=== PATIENT | female | born 1990 | race Caucasian/White ===

== ENCOUNTER 2023-04-23 09:04 | Observation (INO) | payer MEDICAID, SELFPAY ==
[2023-04-23] VITALS (9 sets, daily range): BP systolic 106–134; BP diastolic 48–80; PULSE 74–100; RESP 18; TEMP 36.1; O2SAT 95–100; BMI 41.3
--- NOTE | ~2023-04-23 | US_ITS ---
EXAMINATION: US OB follow up DATE: 04/23/2023 10:37 INDICATION: Lower abdominal pain during of indeterminate gestational age TECHNIQUE: Real-time ultrasound of the pelvis was performed. The interpreting radiologist was not pre sent for the study. COMPARISON: None. FINDINGS: There is a single living fetus in vertex presentation. The placenta is posterior and not low-lying. There is no funneling at the internal cervical os. The cervix measures >2.4 cm but with the region of the external cervical os obscured limiting definitive measurement. heart rate is 131 beats per minute (bpm). The amniotic fluid volume is subjectively normal. The following biometric data were obtained: BPD: 6.8 cm -> 27 weeks 3 days Head circumference: 24.7 cm -> 26 weeks 5 days Abdominal circumference: 22.4 cm -> 26 weeks 6 days Femur length: 5.0 cm -> 26 weeks 6 days These measurements are concordant. Head circumference to abdominal circumference ratio: 1.10 (normal range 1.05-1.22). Estimated weight: 993 g (+/-) 149 g or 2 lbs. 3 oz. (+/-) 5 oz. IMPRESSION: 1. Single living fetus in vertex presentation with heart rate of 131 bpm. 2. Gestational age by ultrasound of 27 weeks 0 day(s) +/- 1 week(s) 6 day(s) with ultrasound estimate d date of delivery (SUAD) of 07/23/2023. Please correlate with clinical information or earlier ultrasou nds for most accurate SUAD. Reviewed, dictated and finalized at location A. STANT PROGRAM DIRECTOR IMPRESSION: 1. Single living fetus in vertex presentation with heart rate of 131 bpm. 2. Gestational age by ultrasound of 27 weeks 0 day(s) +/- 1 week(s) 6 day(s) wi th ultrasound estimated date of delivery (SUAD) of 07/23/2023. Please correlate w ith clinical information or earlier ultrasounds for most accurate SUAD.
[2023-04-23 09:55] LABS: Basophils Percent Auto 0.4 % (0.2-1.2); Eosinophils Absolute Auto 0.1 K/mm3 (0-0.3); Eosinophils Percent Auto 0.7 % (0-4.4); Hematocrit 40.3 % (37.0-47.0); Hemoglobin 13.5 g/dL (12.0-15.0); Immature Granulocyte Absolute 0.04 K/mm3 (0.00-0.031); Immature Granulocyte Percent A 0.4 % (0-0.5); Lymphocytes Absolute Auto 2.01 K/mm3 (0.9-3.2); Lymphocytes Percent Auto 21.1 % (18.3-44.2); Mean Corpuscular HGB Conc 33.5 g/dl (32-36); Mean Corpuscular Hemoglobin 29.6 pg (26-34); Mean Corpuscular Volume 88.4 fl (80-100); Mean Platelet Volume 11.2 fl (7.4-10.4); Monocytes Absolute Auto 0.4 K/mm3 (0.1-0.6); Monocytes Percent Auto 4.5 % (2.6-8.5); Neutrophils Absolute Auto 6.9 K/mm3 (1.3-6.7); Neutrophils Percent Auto 72.9 % (45.5-73.1); Platelet Count Result 217 k/mm3 (150-375); Red Blood Count 4.56 M/mm3 (4.2-5.4); Red Cell Distribution Width 13.2 % (11.5-14.5); White Blood Count 9.5 K/mm3 (4.5-10.0)
--- NOTE | 2023-04-23 10:04 | ED.ABDPAIN ---
HPI - Abdominal Pain General Chief Complaint: Abdominal Pain Stated Complaint: Request Initial Care Time Seen by Provider: 04/23/23 09:30 Source: patient Mode of arrival: ambulatory Limitations: no limitations History of Present Illness HPI narrative: patient is a 33-year-old female who presents the ED with report of lower abdominal pain. Patient is primarily Nepali-speaking. [email or web address] food sampler was utilized for assistance with translation. Reports she had a positive home test last . This is her 1st . She is unsure of her last normal cycle as she states they are very irregular. She developed lower abdominal pain on Wednesday, which has been fairly constant since then. She has not tried anything for the pain. Reports intermittent vomiting. Denies current nausea. Denies fevers, dysuria, hematuria, vaginal bleeding. Patient does not have an OBGYN. Related Data Home Medications Medication Instructions Recorded Confirmed No Home Medications 04/23/23 04/23/23 Allergies Allergy/AdvReac Type Severity Reaction Status Date / Time No Known Allergies Allergy Verified 04/23/23 09:35 Review of Systems Review of Systems: CONSTITUTIONAL: Denies fever, chills, or sweats. CARDIOVASCULAR: Denies chest pain. RESPIRATORY: Denies dyspnea. GASTROINTESTINAL: See HPI. GENITOURINARY: Denies vaginal bleeding, dysuria or hematuria. MUSCULOSKELETAL: Denies back pain, extremity pain, myalgia. All systems reviewed & are unremarkable except as noted in HPI and below Exam Narrative: GENERAL: Well appearing, morbidly obese with BMI 41.4, non-toxic, in no acute distress. HEAD: Normocephalic, atraumatic. RESPIRATORY: Airway patent, respirations nonlabored. Clear to auscultation bilaterally, no rales, rhonchi, wheezing. CARDIOVASCULAR: Regular rate and rhythm without murmurs, rubs, or gallops. ABDOMINAL: Soft, mild tenderness throughout lower abdomen, no significant focal tenderness in either lower quadrants, nondistended. Normoactive BS. MUSCULOSKELETAL: Moves all extremities. No gross deformities. SKIN: Warm, dry, normal color. NEURO: A&O X3. Speech clear. Cranial nerves II-XII grossly intact. Steady gait. No ataxic movements. PSYCHIATRIC: Appropriate mood and affect. Normal interaction. Course Vital Signs Vital signs: Vital Signs Temperature 96.9 F L 04/23/23 09:06 Pulse Rate 100 04/23/23 09:06 Respiratory Rate 18 04/23/23 09:06 Blood Pressure 134/80 04/23/23 09:06 Pulse Oximetry 95 04/23/23 09:06 Oxygen Delivery Room Air 04/23/23 09:06 Temperature 96.9 F L 04/23/23 09:06 Pulse Rate 77 04/23/23 12:44 Respiratory Rate 18 04/23/23 09:06 Blood Pressure 110/48 L 04/23/23 12:44 Pulse Oximetry 97 04/23/23 12:06 Oxygen Delivery Room Air 04/23/23 09:06 MDM - Abdominal Pain MDM Narrative Medical decision making narrative: Patient presented to ED with positive test, lower abdominal pain, , denying vaginal bleeding. Vital signs stable. Laboratory studies fairly unremarkable. Beta quant only 1098. Blood type O+. OB ultrasound obtained and showing single live IUP w/ gestational age of 27 weeks. No significant abnormalities on ultrasound. Discussed case with Ob charge nurse, patient to come over to OB for further monitoring given presence of abdominal pain. I did discuss case with Dr. Barajas, OBGYN talent acquisition associate, advised patient has not had any care. Does not currently have an OBGYN. She will see patient. patient updated on plan and imaging results. She is in agreement with plan. She remains stable at time of transfer to OB. Medical Records Attestation: I reviewed the patient's medical records. Lab Data Attestation: I reviewed the patient's lab results. 04/23/23 09:42 04/23/23 09:42 Labs: Lab Results 04/23/23 Range/Units 09:42 WBC 9.5 (4.5-10.0) K/mm3 RBC 4.56 (4.2-5.4)
[2023-04-23 10:08] LABS: Appearance Urine Clear (Clear); Bacteria Urine None Seen /hpf; Bilirubin Urine Negative (Negative); Blood Urine Negative (Negative); Color Urine Yellow (Yellow); Glucose Urine UA Negative (Negative); Ketones Urine Negative (Negative); Leukocyte Esterase Ur Trace LEU/UL (Negative); Nitrate Urine Negative (Negative); Non Pathogenic Casts 0-2; Protein Urine Negative (Negative); RBC Urine 0-2 /hpf (0-2); Specific Grav Ur 1.016 (1.001-1.035); Squamous Epithelial Cell Urine None seen /hpf (Few); Urobilinogen Urine 0.2 mg/dL (<2.0); WBC Urine 0-5 /hpf
[2023-04-23 10:09] LABS: Alanine Aminotransferase 42 U/L (6-35); Albumin Level 3.9 g/dL (3.5-5.1); Alkaline Phosphatase 99 U/L (38-126); Anion Gap 12 mmol/L (8-16); Aspartate Amino Transferase 29 U/L (14-36); Bilirubin,Total 0.5 mg/dL (0.2-1.3); Blood Urea Nitrogen 6 mg/dL (7-17); Calcium 9.3 mg/dL (8.4-10.2); Carbon Dioxide 17 mmol/L (22-30); Chloride 108 mmol/L (98-107); Estimated CRCL calculation 158 ml/min; Estimated Glomerular Filt Rate > 60; Glucose 118 mg/dL (65-110); Potassium 3.6 mmol/L (3.4-5.0); Sodium 137 mmol/L (137-145)
[2023-04-23 10:10] LABS: Add Urine Microscopic? YES
--- NOTE | 2023-04-23 12:02 | LDADM ---
This patient, Narcisa Allison, was admitted to OB Post 115 on 04/23/23 at 11:20. Plans for labor, pain management and were discussed with patient. Patient/family oriented to hospital policies and general routines including ID bracelet, bed and alarms, visiting hours, pain management, procedures, bathroom and other care routines, personal items, smoking policy, room service/diet and guest tray routines, infant security routines, and visiting hours. Patient/Family are encouraged to report perceived risks to care and to ask questions if they do not understand what they are told or what they should do. See OBIX for further documentation.
--- NOTE | 2023-04-23 12:09 | PC.NURSE ---
pt admitted to observation and is primary Yemeni speaking. director community center ID #[id number] Pt was seen in ED for new and abdomen pain. ED discharged pt and sent OB for further evaluation. reactive NST obtained. Pt rates pain 7/10 no guarding, grimacing, or tenderness noted. called dr Barajas at [address] for further orders[address] Per Dr Barajas evaluation was done in ED orders to obtain NST and discharge pt with instructions to see OBGYN MOHINDER
--- NOTE | 2023-04-23 12:41 | PC.NURSE ---
Used plasma center technician ID number [id number] to go over discharge orders with pt. Pt to follow up with Dr Barajas's Office as soon as possible . Pt educated to start taking daily and Tylenol as needed for pain until dr salcedo.
--- NOTE | 2023-04-28 01:53 | PM.OBTRLD ---
OB - Triage/Final Diagnosis Visit Information Reason for evaluation: other ( abdominal pain) Comments/Additional reasons for admission: I have assessed the risk for this patient, Narcisa Allison, and determined that she would benefit from observation care. Evaluation Laboratory results: Laboratory Tests 04/23/23 09:42 WBC 9.5 RBC 4.56 Hgb 13.5 Hct 40.3 MCV 88.4 MCH 29.6 MCHC 33.5 RDW 13.2 Plt Count 217 MPV 11.2 H Immature Gran % (Auto) 0.4 Neut % (Auto) 72.9 Lymph % (Auto) 21.1 [place] % (Auto) 4.5 Eos % (Auto) 0.7 Baso % (Auto) 0.4 Lymph # (Auto) 2.01 [place] # (Auto) 0.4 Eos # (Auto) 0.1 Baso # (Auto) 0.0 Abs Immat Gran (auto) 0.04 H Absolute Neuts (auto) 6.9 H Absolute Nucleated RBC 0.0 Nucleated RBC % 0.0 Sodium 137 Potassium 3.6 Chloride 108 H Carbon Dioxide 17 L Anion Gap 12 BUN 6 L Creatinine 0.50 L Estim Creat Clear Calc 158 Estimated GFR > 60 Glucose 118 H Calcium 9.3 Total Bilirubin 0.5 AST 29 ALT 42 H Alkaline Phosphatase 99 Total Protein 7.0 Albumin 3.9 Beta HCG, Quant 1098.40 Urine Color Yellow Urine Appearance Clear Urine pH 5.0 Ur Specific [place] 1.016 Urine Protein Negative Urine Glucose (UA) Negative Urine Ketones Negative Ur Blood (Man) Negative Urine Nitrate Negative Urine Bilirubin Negative Urine Urobilinogen 0.2 Leukocyte Esterase Rfl Trace H Urine RBC 0-2 Urine WBC 0-5 Ur Squamous Epith Cells None seen Urine Bacteria None seen Urine Casts 0-2 Blood Type O Positive Antibody Screen Negative Screen Not Reportable Baby's Blood Type Not Reportable Baby's YAAKOV Not Reportable Doses of RhIg Required 0
== END 2023-04-23 12:40 | disposition home or self-care (01) ==
LOC: ANHED 11:16 → ANHOBPP 11:33
PROVIDERS: Admitting Provider Obstetrics & Gynecology Gynecology; Emergency Provider Physician Assistant; Visit Provider Obstetrics & Gynecology Gynecology
DX: O26.892 Other specified pregnancy related conditions, second trimester (principal); R10.30 Lower abdominal pain, unspecified; O21.9 Vomiting of pregnancy, unspecified; Z3A.27 27 weeks gestation of pregnancy
CPT/HCPCS: 36415; 59025; 76816; 80053; 81001; 81025; 84702; 85025; 85461; 86850; 86900; 86901; G0378; G0379

== ENCOUNTER 2023-05-31 12:40 | Outpatient (CLI) | payer MEDICAID, SELFPAY ==
--- NOTE | ~2023-05-31 | US_ITS ---
EXAMINATION: US OB follow up DATE: 05/31/2023 16:18 INDICATION: Size greater than dates. TECHNIQUE: Real-time transabdominal and transvaginal ultrasound of the pelvis was performed. COMPARISON: Ultrasound 04/23/2023 FINDINGS: There is a single living fetus in vertex presentation. The placenta is posterior. heart rate i s 146 beats per minute (bpm). The amniotic fluid volume is subjectively normal. The following biometric data were obtained: Biparietal diameter (BPD): 8.0 cm; head circumference (HC): 29.4 cm; abdominal circumference (AC): 28 .8 cm; femur length (FL): 6.3 cm. These measurements are concordant. Estimated weight is 2005 g +/- 301 g, which correlates with the 45th percentile when 07/23/23 is used as estimated date of delivery. As single measurements, these parameters are each equal to the following estimated gestational ages: BPD: 32 weeks 1 days. HC: 32 weeks 3 days. AC: 32 weeks 6 days. FL: 32 weeks 3 days. estimated gestational age based solely on measurements from this exam is 32 weeks 3 days +/- 2 weeks 2 days. The cervical length is 4.6 cm on transvaginal imaging, which is normal. IMPRESSION: 1. Single living fetus in vertex presentation. 2. Estimated weight is 2005 g +/- 301 g, which correlates with the 45th percentile when 4 is used as estimated date of delivery. Reviewed, dictated and finalized at location A. NG MACHINE OPERATOR IMPRESSION: 1. Single living fetus in vertex presentation. 2. Estimated weight is 2006 g +/- 301 g, which correlates with the 45th percentile when 07/23/23 is used as estimated date of delivery.
[2023-05-31 14:39] LABS: Basophils Percent Auto 0.3 % (0.2-1.2); Eosinophils Absolute Auto 0.1 K/mm3 (0-0.3); Eosinophils Percent Auto 0.6 % (0-4.4); Hematocrit 40.9 % (37.0-47.0); Hemoglobin 13.4 g/dL (12.0-15.0); Immature Granulocyte Absolute 0.06 K/mm3 (0.00-0.031); Immature Granulocyte Percent A 0.6 % (0-0.5); Lymphocytes Absolute Auto 2.46 K/mm3 (0.9-3.2); Mean Corpuscular HGB Conc 32.8 g/dl (32-36); Mean Corpuscular Volume 88.5 fl (80-100); Mean Platelet Volume 11.1 fl (7.4-10.4); Monocytes Absolute Auto 0.5 K/mm3 (0.1-0.6); Monocytes Percent Auto 5.4 % (2.6-8.5); Neutrophils Absolute Auto 6.7 K/mm3 (1.3-6.7); Neutrophils Percent Auto 68.1 % (45.5-73.1); Platelet Count Result 220 k/mm3 (150-375); Red Blood Count 4.62 M/mm3 (4.2-5.4); Red Cell Distribution Width 13.5 % (11.5-14.5); White Blood Count 9.8 K/mm3 (4.5-10.0)
[2023-05-31 14:48] LABS: Glucose 1 Hour PP 50gm Dose 168 mg/dL
[2023-05-31 15:55] LABS: Hemoglobin A1C 5.3 % (<5.7)
[2023-05-31 16:36] LABS: Vitamin D 25 Hydroxy 41.1 ng/mL
[2023-05-31 16:45] LABS: Free T4 Free Thyroxine 0.77 ng/mL (0.78-2.19)
[2023-05-31 17:01] LABS: HIV 1/2 Ab P24 Ag Result Negative (Negative)
[2023-06-01 04:46] LABS: Hepatitis C Virus Antibody Negative (Negative)
[2023-06-01 04:56] LABS: Hepatitis B Surface Antigen Negative (Negative); Rubella IgG Antibody 13.1 IU/ML
[2023-06-01 15:56] LABS: Rapid Plasma Reagin Non-Reactive (NonReactive)
== END 2023-05-31 12:41 | disposition home or self-care (01) ==
PROVIDERS: Visit Provider Advanced Practice Midwife
DX: Z36.9 Encounter for antenatal screening, unspecified (principal); O36.63X0 Maternal care for excessive fetal growth, third trimester, not applicable or unspecified; Z3A.00 Weeks of gestation of pregnancy not specified
CPT/HCPCS: 36415; 76816; 82306; 82728; 82947; 83036; 84439; 84443; 85025; 86592; 86703; 86762; 86803; 86850; 86900; 86901; 87340; G0432

== ENCOUNTER 2023-06-11 12:05 | Outpatient (CLI) | payer MEDICAID, SELFPAY ==
--- NOTE | ~2023-06-11 | US_ITS ---
EXAMINATION: US OB /maternal detail DATE: 06/11/2023 13:05 INDICATION: Size greater than dates during third trimester , anatomy assessment TECHNIQUE: Real-time ultrasound of the pelvis was performed. COMPARISON: 05/31/2023 FINDINGS: There is a single living fetus in vertex presentation. The placenta is posterior/fundal. heart rate is 138 beats per minute (bpm). cardiac activity and movement are noted. The amnioti c fluid index is 13.3 which is normal (normal range: 8.1 cm to 24.8 cm). There is limited evaluation of the intracranial structures which appear grossly normal. The following anatomy was identified as normal: 4 chamber heart 3 vessel cord cord insertion kidneys urinary bladder stomach spine diaphragm The following biometric data were obtained: Biparietal diameter (BPD): 8.3 cm; head circumference (HC): 31.3 cm; abdominal circumference (AC): 32 .3 cm; femur length (FL): 6.4 cm. The femoral length to abdominal circumference ratio is greater than two standard deviations below the mean. Estimated weight is 2565 g +/- 384 g, which correlates with the 73rd percentile when 07/23/2023 is used as estimated date of delivery. As single measurements, these parameters are each equal to the following estimated gestational ages w ith ranges of +/- 2 standard deviations: BPD: 33 weeks 2 days +/- 3 weeks 1 days. HC: 35 weeks 1 days +/- 3 weeks 0 days. AC: 36 weeks 1 days +/- 3 weeks 0 days. FL: 33 weeks 1 days +/- 3 weeks 0 days. estimated gestational age based solely on measurements from this exam is 34 weeks 3 days +/- 2 weeks 3 days. IMPRESSION: 1. Single living fetus in vertex presentation. 2. Estimated weight is 2565 g +/- 384 g, which correlates with the 73rd percentile when 07/23/19 24 is used as estimated date of delivery. 3. Normal amniotic fluid index. 4. Femoral length to abdominal circumference ratio greater than two standard deviations below the roopa n. Reviewed, dictated and finalized at location B. ING FOREMAN IMPRESSION: 1. Single living fetus in vertex presentation. 2. Estimated weight is 2565 g +/- 384 g, which correlates with the 73rd p ercentile when 07/23/2023 is used as estimated date of delivery. 3. Normal amniotic fluid index. 4. Femoral length to abdominal circumference ratio greater than two standard de viations below the mean.
[2023-06-11 13:45] VITALS: BP 116/57
== END 2023-06-11 12:06 | disposition home or self-care (01) ==
LOC: ANHIMG 12:06
PROVIDERS: Visit Provider Advanced Practice Midwife
DX: O36.63X0 Maternal care for excessive fetal growth, third trimester, not applicable or unspecified (principal); Z3A.34 34 weeks gestation of pregnancy
CPT/HCPCS: 59025; 76805

== ENCOUNTER 2023-06-26 12:53 | Outpatient (RCR) | payer MEDICAID, SELFPAY ==
[2023-06-08 17:47] VITALS: BP 109/59; PULSE 75
[2023-06-15 10:57] VITALS: BP 108/68; PULSE 94
[2023-06-23 17:00] VITALS: BP 104/70; PULSE 78
--- NOTE | 2023-06-23 17:04 | PC.NURSE ---
6 called navid to clarify orders. confirmed NST 2x weekly.
== END 2023-09-02 23:59 | disposition home or self-care (01) ==
LOC: ANHOBOP 12:53
PROVIDERS: Visit Provider Obstetrics & Gynecology Gynecology
DX: O24.419 Gestational diabetes mellitus in pregnancy, unspecified control (principal); Z3A.33 33 weeks gestation of pregnancy; Z3A.34 34 weeks gestation of pregnancy; Z3A.35 35 weeks gestation of pregnancy; Z3A.36 36 weeks gestation of pregnancy
CPT/HCPCS: 59025

== ENCOUNTER 2023-07-09 16:09 | Observation (INO) | payer MEDICAID, SELFPAY ==
[2023-07-09 16:59] VITALS: BP 86/53; PULSE 77
[2023-07-09 17:00] VITALS: BP 92/24; PULSE 135
[2023-07-09 17:01] VITALS: BP 98/68; PULSE 89
[2023-07-09 17:02] VITALS: BP 97/61; PULSE 93
--- NOTE | 2023-07-09 17:07 | OBADM ---
This patient, Narcisa Allison, admitted to the OB room Labor/Delivery/Recovery 105 for observation. Patient/family oriented to hospital policies and general routines including ID bracelet, bed and alarms, visiting hours, pain management, procedures, bathroom and other care routines, personal items, smoking policy, room service/diet, and visiting hours. Patient/Family are encouraged to report perceived risks to care and to ask questions if they do not understand what they are told or what they should do.
[2023-07-09 17:30] VITALS: BP 107/66; PULSE 76
[2023-07-09 17:35] LABS: Appearance Urine Clear (Clear); Bilirubin Urine Negative (Negative); Blood Urine Negative (Negative); Color Urine Yellow (Yellow); Glucose Urine UA Negative (Negative); Ketones Urine Negative (Negative); Leukocyte Esterase Ur Negative LEU/UL (Negative); Nitrate Urine Negative (Negative); Protein Urine Negative (Negative); Specific Grav Ur 1.012 (1.001-1.035); Urobilinogen Urine 0.2 mg/dL (<2.0); pH Urine 5.5 (5.0-9.0)
[2023-07-09 18:00] VITALS: BP 109/70; PULSE 90
[2023-07-09 18:38] LABS: Add Urine Microscopic? NO
--- NOTE | 2023-07-14 06:12 | PM.OBTRLD ---
OB - Triage/Final Diagnosis Visit Information Reason for evaluation: threatened labor Comments/Additional reasons for admission: I have assessed the risk for this patient, Narcisa Allison, and determined that she would benefit from observation care. Evaluation Laboratory results: Laboratory Tests 07/09/23 16:58 Urine Color Yellow Urine Appearance Clear Urine pH 5.5 Ur Specific [place] 1.012 Urine Protein Negative Urine Glucose (UA) Negative Urine Ketones Negative Ur Blood (Man) Negative Urine Nitrate Negative Urine Bilirubin Negative Urine Urobilinogen 0.2 Leukocyte Esterase Rfl Negative
== END 2023-07-09 18:52 | disposition home or self-care (01) ==
PROVIDERS: Admitting Provider Obstetrics & Gynecology Gynecology; Visit Provider Obstetrics & Gynecology Gynecology
DX: O47.1 False labor at or after 37 completed weeks of gestation (principal); Z3A.38 38 weeks gestation of pregnancy
CPT/HCPCS: 81003; G0378; G0379

== ENCOUNTER 2023-07-14 15:54 | Inpatient (IN) | payer MEDICAID, SELFPAY ==
[2023-07-14] VITALS (93 sets, daily range): BP systolic 81–139; BP diastolic 49–97; PULSE 69–108; TEMP 36.2–36.4; O2SAT 95–100; BMI 44.5
--- NOTE | 2023-07-14 16:22 | LDADM ---
This patient, Narcisa Allison, was admitted to Labor/Delivery/Recovery 107 on 07/14/23 at 15:54. Plans for labor, pain management and were discussed with patient. Patient/family oriented to hospital policies and general routines including ID bracelet, bed and alarms, visiting hours, pain management, procedures, bathroom and other care routines, personal items, smoking policy, room service/diet and guest tray routines, infant security routines, and visiting hours. Patient/Family are encouraged to report perceived risks to care and to ask questions if they do not understand what they are told or what they should do. See OBIX for further documentation.
[2023-07-14] MEDS: LACTATED RINGERS 1,000 ML 125 ML IV CONT (16:58)
[2023-07-14] MEDS: OXYTOCIN 30 UNITS/NS 500 ML 30 UNITS/500 ML BAG IV CONT (16:59)
[2023-07-14 17:22] LABS: Basophils Percent Auto 0.4 % (0.2-1.2); Eosinophils Absolute Auto 0.1 K/mm3 (0-0.3); Eosinophils Percent Auto 0.5 % (0-4.4); Hematocrit 43.6 % (37.0-47.0); Hemoglobin 14.8 g/dL (12.0-15.0); Immature Granulocyte Absolute 0.04 K/mm3 (0.00-0.031); Immature Granulocyte Percent A 0.4 % (0-0.5); Lymphocytes Absolute Auto 3.43 K/mm3 (0.9-3.2); Mean Corpuscular HGB Conc 33.9 g/dl (32-36); Mean Corpuscular Hemoglobin 28.7 pg (26-34); Mean Corpuscular Volume 84.5 fl (80-100); Mean Platelet Volume 11.7 fl (7.4-10.4); Monocytes Absolute Auto 0.6 K/mm3 (0.1-0.6); Monocytes Percent Auto 4.8 % (2.6-8.5); Neutrophils Absolute Auto 7.3 K/mm3 (1.3-6.7); Neutrophils Percent Auto 63.9 % (45.5-73.1); Platelet Count Result 242 k/mm3 (150-375); Red Blood Count 5.16 M/mm3 (4.2-5.4); Red Cell Distribution Width 13.7 % (11.5-14.5); White Blood Count 11.4 K/mm3 (4.5-10.0)
[2023-07-14 17:34] LABS: Alanine Aminotransferase 32 U/L (6-35); Alkaline Phosphatase 224 U/L (38-126); Anion Gap 10 mmol/L (8-16); Aspartate Amino Transferase 27 U/L (14-36); Bilirubin,Total 0.6 mg/dL (0.2-1.3); Blood Urea Nitrogen 13 mg/dL (7-17); Calcium 9.7 mg/dL (8.4-10.2); Carbon Dioxide 17 mmol/L (22-30); Chloride 107 mmol/L (98-107); Estimated CRCL calculation 130 ml/min; Estimated Glomerular Filt Rate > 60; Glucose 81 mg/dL (65-110); Potassium 3.8 mmol/L (3.4-5.0); Sodium 134 mmol/L (137-145)
--- NOTE | 2023-07-14 18:14 | PC.NURSE ---
Used [email or web address] section beamer number [id number] to ask induction questions.
--- NOTE | 2023-07-14 18:14 | WPDOBADMIT ---
Obstetrics - Admit Note Admission Note: record reviewed. No pertinent additions to the history and/or any subsequent changes in the physical findings that are not consistent with the expected course of the were found. Additions to the history and/or subsequent changes in the physical findings follow. Pt with elevated BP at term and RUQ pain.
--- NOTE | 2023-07-14 18:16 | PM.OBPNLAB ---
Pain Control Date/time seen: 07/14/23 18:10 Pain control: tolerating well Comments: Family present and supportive. Pelvic Exam Dilation (cm): 3 Effacement (%): 50 station: -3 Amniotic membrane status: Intact Comments: head well applied to cervix. Contractions Monitor mode: External Contraction frequency: 3 (3-5) Contraction duration: 80 (60-120) Contraction pattern: Regular Contraction phase: Contraction Contraction intensity: Moderate Status status: Category l Assessment and Plan Pitocin rate (mU/min): 4 Assessment: induction ongoing Plan: continuous present management Comments: CNM to bedside. Pt still with RUQ discomfort. No evidence of preeclampsia. BPs WNL. Discussed plan of care an option for amniotomy. Discussed risks, benefits, and expectations of breaking water. Patient is agreeable. Amniotomy performed and there was a moderate return of clear amniotic fluid. Patient tolerated procedure well. Pitocin decreased to 2 ml/hr. Discussed plan of care with pt. Anticipate vaginal . Dr. Barajas updated.
--- NOTE | 2023-07-14 18:21 | PC.NURSE ---
Orders to hold night dose of NPH insulin tonight per MARGE Salazar.
--- NOTE | 2023-07-14 19:16 | WPDANESEPP ---
Anes - Eval Pre Procedure Procedure: Labor epidural Date/Time: 07/14/23 19:16 Surgeon: moises Preop Diagnosis: pain during labor Pre Op Diagnosis: IOL Patient Data Age: 33 Gender: F Height: 1.55 m Weight: 107 kg Last Vital Signs Temp 36.2 C L 07/14/23 18:05 Pulse 89 07/14/23 19:15 BP 124/85 07/14/23 19:15 O2 Del Method Room Air 07/14/23 16:13 Allergies Allergy/AdvReac Type Severity Reaction Status Date / Time No Known Allergies Allergy Verified 07/14/23 16:33 Home Medications Medication Instructions Recorded Confirmed Type prenat.vits,eddie,anb-qicd-upnot 1 tablet PO DAILY 06/26/23 07/14/23 History Laboratory Tests 07/14/23 16:22 WBC 11.4 H K/mm3 (4.5-10.0) RBC 5.16 M/mm3 (4.2-5.4) Hgb 14.8 g/dL (12.0-15.0) Hct 43.6 % (37.0-47.0) MCV 84.5 fl (80-100) MCH 28.7 pg (26-34) MCHC 33.9 g/dl (32-36) RDW 13.7 % (11.5-14.5) Plt Count 242 k/mm3 (150-375) MPV 11.7 H fl (7.4-10.4) Immature Gran % (Auto) 0.4 % (0-0.5) Neut % (Auto) 63.9 % (45.5-73.1) Lymph % (Auto) 30.0 % (18.3-44.2) [place] % (Auto) 4.8 % (2.6-8.5) Eos % (Auto) 0.5 % (0-4.4) Baso % (Auto) 0.4 % (0.2-1.2) Lymph # (Auto) 3.43 H K/mm3 (0.9-3.2) [place] # (Auto) 0.6 K/mm3 (0.1-0.6) Eos # (Auto) 0.1 K/mm3 (0-0.3) Baso # (Auto) 0.0 K/mm3 (0.0-0.1) Abs Immat Gran (auto) 0.04 H K/mm3 (0.00-0.031) Absolute Neuts (auto) 7.3 H K/mm3 (1.3-6.7) Absolute Nucleated RBC 0.000 K/mm3 (0.0-0.012) Nucleated RBC % 0.0 % (0.0-0.2) Sodium 134 L mmol/L (137-145) Potassium 3.8 mmol/L (3.4-5.0) Chloride 107 mmol/L (98-107) Carbon Dioxide 17 L mmol/L (22-30) Anion Gap 10 mmol/L (8-16) BUN 13 D mg/dL (7-17) Creatinine 0.60 L mg/dL (0.7-1.0) Estim Creat Clear Calc 130 ml/min Estimated GFR > 60 (59 - ) Glucose 81 mg/dL (65-110) Calcium 9.7 mg/dL (8.4-10.2) Total Bilirubin 0.6 mg/dL (0.2-1.3) AST 27 U/L (14-36) ALT 32 U/L (6-35) Alkaline Phosphatase 224 H U/L (38-126) Total Protein 7.0 g/dL (6.3-8.2) Albumin 4.0 g/dL (3.5-5.1) RPR Pending Blood Type O Positive Antibody Screen Negative Patient hx anesthesia problems: none Family hx anesthesia problems: none Results Review: All pre-operative results and documents have been reviewed as part of the pre-operative evaluation. [facility] Past Medical History Medical History (Updated 07/14/23 @ 19:17 by Sadie Culp CRNA) IUP (intrauterine ), incidental Morbid obesity with BMI of 40.0-44.9, adult Family History Family History (Updated 06/26/23 @ 13:53 by Marcy Rios RN) Grandparent Diabetes mellitus Hypertension Other Unknown family medical history Social History Social History Smoking status: Never smoker Substance use: never Do You Feel Safe in your Home?: Yes Lack of Transportation: No Lack of Food: Never True Current Housing: I Have Housing Concerned About Future Housing: No Difficulty Paying Gas/Electric Bills: No Difficulty Paying for Meds: No Currently Unemployed: YES Education: High School Diploma/GED Difficulty w/ Childcare or Family Care: No Spiritual care concerns: No Exam Day of Procedure 07/14/23 19:16
[2023-07-14] MEDS: DEXTROSE 5%/LACTATED RINGERS 1,000 ML 125 ML IV CONT (20:49)
[2023-07-14 21:15] LABS: Glucose Point of Care 76 mg/dl (65-105)
[2023-07-15] VITALS (128 sets, daily range): BP systolic 82–129; BP diastolic 41–84; PULSE 65–119; RESP 18–20; TEMP 36.4–36.8; O2SAT 95–100
[2023-07-15 01:10] LABS: Glucose Point of Care 117 mg/dl (65-105)
[2023-07-15 02:59] LABS: Glucose Point of Care 110 mg/dl (65-105)
--- NOTE | 2023-07-15 03:51 | PM.OBPNLAB ---
Pain Control Date/time seen: 07/15/23 03:45 Pain control: tolerating well and epidural Pelvic Exam Amniotic membrane status: Ruptured Comments: SVE per RN 100/0 Contractions Monitor mode: Internal Contraction frequency: 3 (2-3) Contraction duration: 60 (70-90) Contraction pattern: Regular Contraction phase: Contraction Contraction intensity: Moderate Status status: Category ll Comments: Reassured by moderate variability and accelerations. Assessment and Plan Pitocin rate (mU/min): 11 Assessment: induction ongoing Plan: continuous present management Comments: CNM present. FHT tracing reviewed. Plan to begin pushing. Anticipate vaginal . Discussed plan of care with video animal physiology teacher.
--- NOTE | 2023-07-15 03:55 | P.PCNOB_ITS ---
OB - Vaginal Delivery Note Procedure Delivery date: 07/15/23 Events: Gestational Diabetes (GDMA2) and Other (late care) Induction method: Per Pitocin Protocol Delivery augmentation: Rupture of Membranes Delivery monitor: External FHT and Internal Uterine Route of delivery: Episiotomy description: None Laceration Description: Superficial (vaginal/perineal and labial. All hemostatic) Specimen: Yes Quantitative Blood Loss (ml): 200 Anesthesia type: Epidural Disposition: Floor Complications: No immediate complications Narrative: Narcisa Arrived for induction of labor at term after having a mild range blood pressure in the office and right upper quadrant pain. Pitocin was started and membranes were ruptured. She received an epidural for analgesia. She progressed to complete dilation and began pushing with contractions. She brought the head to a complete crown and delivered over an intact perineum. a loose nuchal cord was identified. Good restitution was observed. there was gradual descent and delivery of the anterior shoulder Followed by the posterior shoulder and the remainder of the . The remainder of the was delivered in a somersault technique. The was placed on the maternal abdomen and dried and stimulated by the nursery staff. After 1 minute of life, the cord was doubly clamped and cut. Cord blood, cord gases, and cord segment were obtained. The placenta delivered spontaneously in the Garcia presentation. A very small first-degree vaginal/introital laceration was noted which did not require repair and was hemostatic. Uterine tone was firm and there was excellent hemostasis. although liver counts correct. Mother and baby skin to skin in the delivery room. weight unavailable at the time of this note. [place] Baby Date of : 07/15/23 Time of : 04:46 Weeks of gestation at delivery: 38 (38 weeks 6 days) Infant gender: Male Weight (pounds): 0 presentation: vertex position: Left Occiput Anterior Placenta delivery description: Spontaneous Cord Vessel Description: 3 Vessels, Nuchal Cord, Loose and Delayed Cord Clamping score one minute: 8 score five minutes: 9
--- NOTE | 2023-07-15 03:57 | PM.OBDSVD ---
DS: Admitting Diagnosis Discharge Date DC 07/16/[address] Barajas Admitting Diagnosis 33 y.o. at 38 weeks 5 days IOL GDMA2 on 8 units NPH insulin at HS Late care Elevated BP with RUQ pain at term DS: Discharge Diagnosis Discharge Diagnosis (1) Insulin controlled gestational diabetes mellitus (GDM) in third trimester: Code(s): O24.414 - Gestational diabetes mellitus in , insulin controlled Status: Acute (2) (normal spontaneous vaginal delivery): Code(s): O80 - Encounter for full-term uncomplicated delivery Status: Acute OB - DS: Summary Hospital Course Hospital Course: Uncomplicated OB Procedures : NST and Ultrasound OB Procedures Intrapartum: Spontaneous Vag Delivery OB Procedures: : None Peripartum Data Delivery Method: Natural Vaginal Laceration Description: Perineal - 1st Degree Episiotomy description: None complications: none Status at Discharge Functional status at discharge: independent ambulation Overall status at discharge: patient is progressing back to baseline Time Spent with Patient Time attestation: Total time spent providing and/or coordinating discharge services: DS: Data Data Completed and Pending Labs on day of discharge: Labs from last 24 hours 07/15/23 07/15/23 07/14/23 02:53 01:08 21:11 WBC RBC Hgb Hct MCV MCH MCHC RDW Plt Count MPV Immature Gran % (Auto) Neut % (Auto) Lymph % (Auto) [place] % (Auto) Eos % (Auto) Baso % (Auto) Lymph # (Auto) [place] # (Auto) Eos # (Auto) Baso # (Auto) Abs Immat Gran (auto) Absolute Neuts (auto) Absolute Nucleated RBC Nucleated RBC % Sodium Potassium Chloride Carbon Dioxide Anion Gap BUN Creatinine Estim Creat Clear Calc Estimated GFR Glucose POC Capillary Glucose 110 H 117 H 76 Calcium Total Bilirubin AST ALT Alkaline Phosphatase Total Protein Albumin RPR Blood Type Antibody Screen 07/14/23 16:22 WBC 11.4 H RBC 5.16 Hgb 14.8 Hct 43.6 MCV 84.5 MCH 28.7 MCHC 33.9 RDW 13.7 Plt Count 242 MPV 11.7 H Immature Gran % (Auto) 0.4 Neut % (Auto) 63.9 Lymph % (Auto) 30.0 [place] % (Auto) 4.8 Eos % (Auto) 0.5 Baso % (Auto) 0.4 Lymph # (Auto) 3.43 H [place] # (Auto) 0.6 Eos # (Auto) 0.1 Baso # (Auto) 0.0 Abs Immat Gran (auto) 0.04 H Absolute Neuts (auto) 7.3 H Absolute Nucleated RBC 0.000 Nucleated RBC % 0.0 Sodium 134 L Potassium 3.8 Chloride 107 Carbon Dioxide 17 L Anion Gap 10 BUN 13 D Creatinine 0.60 L Estim Creat Clear Calc 130 Estimated GFR > 60 Glucose 81 POC Capillary Glucose Calcium 9.7 Total Bilirubin 0.6 AST 27 ALT 32 Alkaline Phosphatase 224 H Total Protein 7.0 Albumin 4.0 RPR Pending Blood Type O Positive Antibody Screen Negative Discharge Plan Discharge Attending physician on discharge: Danita Barajas Consulting providers: Cici Melgar; Sadie Culp; Nancy Alicea Discharging Clinician: Danita Barajas Patient Disposition: Home, Self-Care Activity: pelvic rest Diet: as tolerated and regular Discharge Instructions: Continue taking your vitamin and any other supplements as previously directed (Examples: Iron, Vitamin D). You may take Tylenol 1000mg over the counter every 6 hours as needed for pain. Do not exceed 4000mg of Tylenol daily. You may continue using tucks pads and dermoplast spray if needed for a few more days. Depression Notify provider for signs or symptoms. These may include- Feelings: Feeling anxious, angry, hopeless, guilt, or loss of interest/pleasure in activities you normally enjoy. Mood swings or panic attacks. General: Extreme fatigue, loss of your appetite, feeling restless. Crying excessively, irritability, insomni
[2023-07-15] MEDS: DEXTROSE 5%/LACTATED RINGERS 1,000 ML 125 ML IV CONT (04:15)
[2023-07-15 04:16] LABS: Glucose Point of Care 111 mg/dl (65-105)
[2023-07-15] MEDS: OXYTOCIN 30 UNITS/NS 500 ML 30 UNITS/500 ML BAG 125 UNITS IV CONT (05:29)
[2023-07-15 07:32] LABS: Rapid Plasma Reagin Non-Reactive (NonReactive)
--- NOTE | 2023-07-15 11:22 | PC.NURSE ---
Patient transferred to post room #288 via wheelchair. Support person present. Oriented to unit, room, information board, rooming in, admission packet and security measures. Patient verbalizes understanding. Status used for translation
[2023-07-15] MEDS: MULTIVIT/MIN/PREN/FOL AC/IRON TABLET 1 TAB PO (11:44)
[2023-07-15] MEDS: IBUPROFEN 600 MG TABLET PO (11:44)
[2023-07-16 03:25] VITALS: BP 97/58; PULSE 79; RESP 16; TEMP 36.7; O2SAT 96
--- NOTE | 2023-07-16 04:35 | P.PNOB_ITS ---
OB - PN: Subj Subjective Date/time seen: 07/16/23 04:35 Interval history: visit completed with cardiopulmonary technologist Patient comments: no complaints and pain well controlled baby status: doing well and nursing well OB - PN: Obj Data Labs 07/14/23 16:22 07/14/23 16:22 Labs: Laboratory Results - last 24 hr 07/14/23 16:22 RPR Non-reactive OB - PN A/P Plan day: 1 Plan: routine care, discharge home, follow up 6 weeks and other (Plans [facility]planon will do at 3 wks) Comments: Reviewed circumcision and patient declines Time Spent With Patient Time: Total time spent is greater than 50% in coordination of care (as documented) at patient's floor/unit and/or counseling patient: Exam Narrative: fundus firm nt @U : Bimanual exam- vagina & uterus: other (Uterus firm, nt @U)
[2023-07-16 06:30] LABS: Hematocrit 39.5 % (37.0-47.0); Hemoglobin 13.2 g/dL (12.0-15.0)
--- NOTE | 2023-07-16 07:36 | WPDANLDPN2 ---
Anes-Prog Note L&D Date/Time: 07/16/23 07:36 Comfortable throughout: labor and delivery Neuraxial method: epidural Epidural/Spinal procedure site: clean & non-tender Neuro status: Neuro function grossly intact. Cardiovascular status: normal Respiratory status: normal Airway patency: baseline Mental status: baseline Post-Op hydration status: normal Vital Signs: Last Vital Signs Temp 36.7 C 07/16/23 03:25 Pulse 79 07/16/23 03:25 Resp 16 07/16/23 03:25 BP 97/58 L 07/16/23 03:25 Pulse Ox 96 07/16/23 03:25 O2 Del Method Room Air 07/15/23 07:51 Pain score (VAS): 10 I/O: Intake & Output 07/15/23 07/15/23 07/16/23 15:59 23:59 07:59 Intake Total 240 Balance 240 Post-procedural complaints: none Patient feedback: Patient satisfied with anesthetic care.
[2023-07-16 08:15] VITALS: BP 100/63; PULSE 75; RESP 16; TEMP 36.7; O2SAT 96
[2023-07-16] MEDS: IBUPROFEN 600 MG TABLET PO (09:25)
[2023-07-16] MEDS: MULTIVIT/MIN/PREN/FOL AC/IRON TABLET 1 TAB PO (09:25)
--- NOTE | 2023-07-16 14:38 | PC.NURSE ---
This patient, Narcisa Allison, was received from PACU on 07/16/23 at 1438. Patient/family oriented to unit policies and routines
--- NOTE | 2023-07-16 16:30 | PC.NURSE ---
[phone] With the assistance of patient placement coordinator Brittanie #[id number] Introductions were made, then consulted with patient to assess needs related to . Mother led the conversation with her?plans to feed?her infant and the?experience so far. Encouraged understanding of the benefits of skin to skin (demonstrating unwrapping and placing upright on her chest), stimulating with massage touch, changing positions to encourage wakefulness, how to watch for early feeding cues, responsive feeding, feeding on demand (aiming for 8-12 times in 24 hours, about every 2-3 hours), milk production, building/maintaining a milk supply, duration of feeding, signs of adequate intake/output and how to record on the feeding sheet. Mother works well with her infant with encouragement and education. Discussed responsive feeding watching for feeding cues. Upon entering the room mother is sleeping in bed with her with a soft make shift bed for infant with a pillow to the side of the , under the infant, with a swaddled baby tucked into a fuzzy blanket with a hat on. We reviewed SSE with the use of written [place] guidelines for safe sleeping, Father of baby was given a booklet as well in their Primary language of [place], along with an patient placement coordinator sharing the safe sleeping guidelines. Infant was removed from the unsafe sleeping space to demonstrate to parents checking a diaper to stimulate for wakefulness to breastfeed. Reviewed positioning and ear, shoulder, hip alignment, supporting the breast to facilitate a deep latch, asymmetrical latch (off-center), leading with the chin with a big, open, wide gape and body close to mother. Mother independently latched infant optimally to the right breast in football position. Education given to the mother of how to visualize the suckling (with good rocking jaw motion), swallows (dropping of the lower jaw) and how to listen for drinking at the breast (the ka sound) and demonstrated well. Infant was able to maintain latch without pain to mother protecting the nipple with optimal positioning and latching. Reviewed comfort measures of healing with a warm, wet washcloth to rinse breast, then leave open to air-dry, good handwashing when or touching the breast/nipples to prevent infection. Mother voiced understanding of skin to skin, stimulating with massage touch, responsive feedings, hand expressed colostrum, talking to infant to encourage if it has been 2 -2.5 hours since the start of the last , to call if infant does not latch, or if there is discomfort with . Resources used for education were facilitated with the visual educational handouts, tool/[place] guide. Inpatient/outpatient resources provided with name written on the communication board. Parents voiced understanding of information, demonstrated learning and will call if there is a request for assistance. Reported to the Primary RN.
== END 2023-07-16 18:24 | disposition home or self-care (01) | DRG 560 ==
LOC: ANHLDR 07-15 04:02 → ANHOB2 07-15 11:33
PROVIDERS: Advanced Practice Midwife; Admitting Provider Obstetrics & Gynecology Gynecology; Visit Provider Obstetrics & Gynecology Gynecology
DX: O24.429 Gestational diabetes mellitus in childbirth, unspecified control (principal); Z37.0 Single live birth; Z3A.38 38 weeks gestation of pregnancy; O69.81X0 Labor and delivery complicated by cord around neck, without compression, not applicable or unspecified; O36.8330 Maternal care for abnormalities of the fetal heart rate or rhythm, third trimester, not applicable or unspecified; O70.0 First degree perineal laceration during delivery
CPT/HCPCS: 36415; 80053; 82948; 85014; 85018; 85025; 86592; 86850; 86900; 86901; 88307; A9270; J2590; J2795; J7120; J7121